=== PATIENT | male | born 2000 | race African-American/Black ===

== ENCOUNTER 2018-06-11 17:48 | Inpatient (IN) ==
[2018-06-11] MEDS ORDERED: Sod Chloride 0.9% Inj 1,000 ML IV.SIG ONE (18:28)
[2018-06-11 18:54] LABS: Baso % (Auto) 0.5 % (0.0-2.0); Eos # (Auto) 0.1 th/mm3 (0.0-0.4); Eos % (Auto) 1.4 % (0.0-4.0); Hematocrit 45.8 % (39.0-51.0); Hemoglobin 15.5 gm/dL (13.0-17.0); Lymph % (Auto) 30.2 % (9.0-44.0); Mean Corpuscular HGB Conc 33.9 % (32.0-36.0); Mean Corpuscular Hemoglobin 29.4 pg (27.0-34.0); Mean Corpuscular Volume 86.8 fL (80.0-100.0); Mean Platelet Volume 10.9 fL (7.0-11.0); Mono # (Auto) 0.3 th/mm3 (0.0-0.9); Mono % (Auto) 4.7 % (0.0-8.0); Neut # (Auto) 4.4 th/mm3 (1.8-7.7); Neut % (Auto) 63.2 % (16.0-70.0); Platelet Count 243 th/mm3 (150-450); Red Blood Count 5.28 mil/mm3 (4.50-5.90); Red Cell Distribution Width 12.6 % (11.6-17.2); White Blood Count 6.8 th/mm3 (4.0-11.0)
[2018-06-11 18:58] LABS: Chloride 92 meq/L (98-107); Potassium 4.5 meq/L (3.5-5.1); Sodium 128 meq/L (136-145)
[2018-06-11 19:01] LABS: Bilirubin,Urine Negative (Negative); Clarity,Urine Clear (Clear); Color,Urine Yellow (Yellw/Straw); Leukocyte Esterase,Urine Negative (Negative); Nitrite,Urine Negative (Negative); PH,Urine 5.5 (5.0-8.5); Urobilinogen,Urine 0.2 mg/dL (Less than 2)
[2018-06-11 19:02] LABS: Calcium 9.1 mg/dL (8.5-10.1)
[2018-06-11 19:03] LABS: Activated Partial Thrombo Time 26.2 sec (24.3-30.1); Albumin 3.9 g/dL (3.4-5.0); Anion Gap 18 meq/L (5-15); Blood Urea Nitrogen 15 mg/dL (7-18); Carbon Dioxide 17.8 meq/L (21.0-32.0); INR 1.1 Ratio; Lipase 146 U/L (73-393); Prothrombin Time 10.7 sec (9.8-11.6)
[2018-06-11 19:06] LABS: Aspartate Aminotransferase 19 U/L (15-39); Glomerular Filtration Rate 52 mL/min (>89)
[2018-06-11 19:07] LABS: Total Protein 7.7 g/dL (6.4-8.2)
[2018-06-11 19:08] LABS: Amorphous Sediment,Urine Rare /hpf; Bacteria,Urine Rare /hpf; Mucus,Urine Few /lpf (Occasional); RBC,Urine 0-3 /hpf (0-3); WBC,Urine 0-5 /hpf (0-5)
[2018-06-11 19:10] LABS: Alkaline Phosphatase 125 U/L (45-117)
[2018-06-11 19:14] LABS: Alanine Aminotransferase 43 U/L (9-52); Glucose,Random 610 mg/dL (74-106); Platelet Estimate Normal (Normal); Tear Drop Cells 1+
--- NOTE | 2018-06-11 19:27 | ED ---
HPI General Chief Complaint: Abdominal Pain Stated Complaint: left side pain Time Seen by Provider: 06/11/18 19:20 Source: patient Mode of arrival: ambulatory Limitations: no limitations History of Present Illness HPI narrative: 18-year-old male presents to the emergency department by private transportation for evaluation of left upper quadrant abdominal pain and left- sided chest pain since this morning. Patient reports approximate 2 weeks ago he bought an [id number] thyroid supplement at [facility] to help with his metabolism. Patient states that he started taking the medication approximately 5 days ago. Patient states that since taking the medication he has noticed increased urine output and he is lost approximately 18 pounds. Patient denies any known history of thyroid disease or diabetes. Patient states that his pain is intermittent has taken no medications for his discomfort. Patient denies any known history of hypertension dyslipidemia diabetes cardiac disease arrhythmia or thyroid dysfunction. Patient states that he has been diagnosed in the past with childhood asthma and a murmur when he was a young child reportedly. Patient has had no fever no chills has had no nausea no vomiting no sweats. Patient does not commonly referred neck jaw back shoulder or arm pain. Patient denies any family history of heart disease or hypertension or diabetes that he is aware of. Patient denies tobacco use alcohol use or substance use. Patient has noted increased urine output but does not report any increased hunger or thirst. Patient does not describe his discomfort as reproducible or pleuritic. MD complaint: Reports abdominal pain and other (chest pain) Onset (ago): day(s) (1) Related Data Home Medications Medication Instructions Recorded Confirmed No Known Home Medications 06/11/18 06/11/18 Allergies Allergy/AdvReac Type Severity Reaction Status Date / Time No Known Allergies Allergy Verified 06/11/18 18:09 Review of Systems ROS: all other systems reviewed are negative [facility] Medical History Medical History Patient denies medical problems (Acute) Surgical History Surgical History No history of previous surgery (Acute) Social History Social History Substance History: No History of Abuse Smoking Status: Never smoker How Often Do You Have a Drink Containing Alcohol: Never Recent Travel in [facility] within the Last 8 Weeks: No Recent Out of Country Travel within the Last 8 Weeks: No Immunization History Tetanus Immunization: Unsure Exam Narrative Exam Narrative: GENERAL: Well-nourished, well-developed patient. SKIN: Focused skin assessment warm/dry. HEAD: Normocephalic. EYES: No scleral icterus. No injection or drainage. NECK: Supple, trachea midline. No JVD or lymphadenopathy. CARDIOVASCULAR: Regular rate and rhythm without murmurs, gallops, or rubs. RESPIRATORY: Breath sounds equal bilaterally. No accessory muscle use. GASTROINTESTINAL: Abdomen soft, non-tender, nondistended. MUSCULOSKELETAL: No cyanosis, or edema. BACK: Nontender without obvious deformity. No CVA tenderness. Course Consultations Consultation #1: discussed with and accepted by Dr Hernandez for admission Initial Documented Vital Signs Temperature 98.6 F 06/11/18 18:03 Pulse Rate 111 H 06/11/18 18:03 Respiratory Rate 18 06/11/18 18:03 Blood Pressure 145/87 H 06/11/18 18:03 Pulse Oximetry 97 06/11/18 18:03 Last Documented Vital Signs Temperature 98.6 F 06/11/18 18:03 Pulse Rate 92 H 06/11/18 20:57 Respiratory Rate 16 06/11/18 20:57 Blood Pressure 148/86 H 06/11/18 20:57 Pulse Oximetry 98 06/11/18 20:57 Critical Care Time Critical Care Time: Yes Total Critical Care Time: 35 Attestation: Aggregate critical care time was 35 minutes. Time to perform other separately billable procedures was not included in the critical care time. My time did not include minutes spent treating any other patients simultaneously or on activities that did not directly contribute to the patient's treatment. The services I provided to this patient were to treat and/or prevent clinically significant deterioration that could result in: Electrolyte disturbance arrhythmia I provided critical care services requiring my management, as noted below: Chart data review, documentation time, medication orders and management, vital sign assessments/reviewing monitor data, ordering and reviewing lab tests, ordering and interpreting/reviewing x-rays and diagnostic studies, care of the patient and discussion of the patient with the admitting physicians. Medical Decision Making MDM Narrative Medical decision making narrative: 18 year old male with weight loss and polyuria --susupect new onset diabetes and possible dka serum glucose 610 patient given 2 liters NS bolus and weight based insulin 10 units IV with q1 hour glucose decreased bicarb with elevated anion gap and venous pH 7.24 --patient ordered dka protocol; b elevated patient and family informed of lab results diagnosis and plan for admission; call plced to [place] service MD Dr Hernandez --admit to [facility] ICU Medical Screen Exam Complete: Yes Emergency Medical Condition: Yes Differential Diagnosis Differential Diagnosis: dka, new onset diabetes, thyroid disease Medical Records Medical records reviewed: Yes I reviewed the patient's medical records. Lab Data Lab results reviewed: Yes I reviewed the patient's lab results. Result diagrams: 06/11/18 18:40 06/11/18 18:40 Lab Results 06/11/18 06/11/18 06/11/18 Range/Units 18:40 18:40 18:40 CBC w Diff Slide review pending WBC 6.8 (4.0-11.0) th/mm3 RBC 5.28 (4.50-5.90) mil/mm3 Hgb 15.5 (13.0-17.0) gm/dL Hct 45.8 (39.0-51.0) % MCV 86.8 (80.0-100.0) fL MCH 29.4 (27.0-34.0) pg MCHC 33.9 (32.0-36.0) % RDW 12.6 (11.6-17.2) % Plt Count 243 (150-450) th/mm3 MPV 10.9 (7.0-11.0) fL Neut % (Auto) 63.2 (16.0-70.0) % Lymph % (Auto) 30.2 (9.0-44.0) % [place] % (Auto) 4.7 (0.0-8.0) % Eos % (Auto) 1.4 (0.0-4.0) % Baso % (Auto) 0.5 (0.0-2.0) % Neut # (Auto) 4.4 (1.8-7.7) th/mm3 Lymph # (Auto) 2.0 (1.0-4.8) th/mm3 [place] # (Auto) 0.3 (0.0-0.9) th/mm3 Eos # (Auto) 0.1 (0.0-0.4) th/mm3 Baso # (Auto) 0.0 (0.0-0.2) th/mm3 WBC Differential . Diff Scan Auto diff confirmed Differential Comment . Platelet Estimate Normal (Normal) Platelet Morphology Enlarged H (Normal) Tear Drop Cells 1+ H (None) PT 10.7 (9.8-11.6) sec INR 1.1 Ratio APTT 26.2 (24.3-30.1) sec Puncture Site Patient Temperature VBG pH (7.360-7.400) VBG pCO2 (44-48) mmHG VBG pO2 (35-40) mmHG VBG HCO3 (22-26) mmol/L VBG O2 Saturation (70-76) % VBG O2 Content (9.0-17.0) Vol % VBG Base Excess (-2-2) mmol/L VBG Carboxyhemoglobin (0-4) % VBG Methemoglobin (0-2) % Hemoglobin (12.0-16.0) G/DL Inspired O2 % Critical Value Sodium 128 L (136-145) meq/L Potassium 4.5 (3.5-5.1) meq/L Chloride 92 L (98-107) meq/L Carbon Dioxide 17.8 L (21.0-32.0) meq/L Anion Gap 18 H (5-15) meq/L BUN 15 (7-18) mg/dL Creatinine 2.00 H (0.60-1.30) mg/dL Estimated GFR 52 L (>89) mL/min POC Glucose (68-110) mg/dl Random Glucose 610 H* (74-106) mg/dL Calcium 9.1 (8.5-10.1) mg/dL Magnesium 2.0 (1.5-2.5) mg/dL Total Bilirubin 0.7 (0.2-1.0) mg/dL AST 19 (15-39) U/L ALT 43 (9-52) U/L Alkaline Phosphatase 125 H (45-117) U/L Total Protein 7.7 (6.4-8.2) g/dL Albumin 3.9 (3.4-5.0) g/dL Lipase 146 (73-393) U/L Beta-Hydroxybutyric Acd 6.46 H (0.00-0.39) mmol/L TSH 2.100 (0.358-3.740) uIU/mL Urine Color (Yellw/Straw) Urine Clarity (Clear) Urine pH (5.0-8.5) Ur Specific [place] (1.002-1.035) Urine Protein (Neg-Trace) mg/dL Urine Glucose (UA) (Negative) mg/dL Urine Ketones (Negative) mg/dL Urine Occult Blood (Negative) Urine Nitrate (Negative) Urine Bilirubin (Negative) Urine Urobilinogen (Less than 2) mg/dL Ur Leukocyte Esterase (Negative) Urine RBC (0-3) /hpf Urine WBC (0-5) /hpf Amorphous Sediment (None) /hpf Urine Bacteria (None) /hpf Urine Mucus (Occasional) /lpf Micro UA Comment Ur Microscopic Review Urine Culture Comments 06/11/18 06/11/18 06/11/18 Range/Units 18:50 20:34 20:50 CBC w Diff WBC (4.0-11.0) th/mm3 RBC (4.50-5.90) mil/mm3 Hgb (13.0-17.0) gm/dL Hct (39.0-51.0) % MCV (80.0-100.0) fL MCH (27.0-34.0) pg MCHC (32.0-36.0) % RDW (11.6-17.2) % Plt Count (150-450) th/mm3 MPV (7.0-11.0) fL Neut % (Auto) (16.0-70.0) % Lymph % (Auto) (9.0-44.0) % [place] % (Auto) (0.0-8.0) % Eos % (Auto) (0.0-4.0) % Baso % (Auto) (0.0-2.0) % Neut # (Auto) (1.8-7.7) th/mm3 Lymph # (Auto) (1.0-4.8) th/mm3 [place] # (Auto) (0.0-0.9) th/mm3 Eos # (Auto) (0.0-0.4) th/mm3 Baso # (Auto) (0.0-0.2) th/mm3 WBC Differential Diff Scan Differential Comment Platelet Estimate (Normal) Platelet Morphology (Normal) Tear Drop Cells (None) PT (9.8-11.6) sec INR Ratio APTT (24.3-30.1) sec Puncture Site R ac Patient Temperature 98.6 VBG pH 7.24 L* (7.360-7.400) VBG pCO2 42 L (44-48) mmHG VBG pO2 36 (35-40) mmHG VBG HCO3 18 L (22-26) mmol/L VBG O2 Saturation 57 L (70-76) % VBG O2 Content 12.0 (9.0-17.0) Vol % VBG Base Excess -8.5 L (-2-2) mmol/L VBG Carboxyhemoglobin 0.9 (0-4) % VBG Methemoglobin 1.8 (0-2) % Hemoglobin 15.0 (12.0-16.0) G/DL Inspired O2 21 % Critical Value Yes Sodium (136-145) meq/L Potassium (3.5-5.1) meq/L Chloride (98-107) meq/L Carbon Dioxide (21.0-32.0) meq/L Anion Gap (5-15) meq/L BUN (7-18) mg/dL Creatinine (0.60-1.30) mg/dL Estimated GFR (>89) mL/min POC Glucose 353 H (68-110) mg/dl Random Glucose (74-106) mg/dL Calcium (8.5-10.1) mg/dL Magnesium (1.5-2.5) mg/dL Total Bilirubin (0.2-1.0) mg/dL AST (15-39) U/L ALT (9-52) U/L Alkaline Phosphatase (45-117) U/L Total Protein (6.4-8.2) g/dL Albumin (3.4-5.0) g/dL Lipase (73-393) U/L Beta-Hydroxybutyric Acd (0.00-0.39) mmol/L TSH (0.358-3.740) uIU/mL Urine Color Yellow (Yellw/Straw) Urine Clarity Clear (Clear) Urine pH 5.5 (5.0-8.5) Ur Specific [place] 1.020 (1.002-1.035) Urine Protein Negative (Neg-Trace) mg/dL Urine Glucose (UA) 1000 or greater H (Negative) mg/dL Urine Ketones 80 or greater H (Negative) mg/dL Urine Occult Blood Trace (Negative) Urine Nitrate Negative (Negative) Urine Bilirubin Negative (Negative) Urine Urobilinogen 0.2 (Less than 2) mg/dL Ur Leukocyte Esterase Negative (Negative) Urine RBC 0-3 (0-3) /hpf Urine WBC 0-5 (0-5) /hpf Amorphous Sediment Rare H (None) /hpf Urine Bacteria Rare H (None) /hpf Urine Mucus Few H (Occasional) /lpf Micro UA Comment Culture not ind Ur Microscopic Review Microscopic reviewed Urine Culture Comments Culture not ind 06/11/18 06/11/18 Range/Units 21:33 23:11 CBC w Diff WBC (4.0-11.0) th/mm3 RBC (4.50-5.90) mil/mm3 Hgb (13.0-17.0) gm/dL Hct (39.0-51.0) % MCV (80.0-100.0) fL MCH (27.0-34.0) pg MCHC (32.0-36.0) % RDW (11.6-17.2) % Plt Count (150-450) th/mm3 MPV (7.0-11.0) fL Neut % (Auto) (16.0-70.0) % Lymph % (Auto) (9.0-44.0) % [place] % (Auto) (0.0-8.0) % Eos % (Auto) (0.0-4.0) % Baso % (Auto) (0.0-2.0) % Neut # (Auto) (1.8-7.7) th/mm3 Lymph # (Auto) (1.0-4.8) th/mm3 [place] # (Auto) (0.0-0.9) th/mm3 Eos # (Auto) (0.0-0.4) th/mm3 Baso # (Auto) (0.0-0.2) th/mm3 WBC Differential Diff Scan Differential Comment Platelet Estimate (Normal) Platelet Morphology (Normal) Tear Drop Cells (None) PT (9.8-11.6) sec INR Ratio APTT (24.3-30.1) sec Puncture Site Patient Temperature VBG pH (7.360-7.400) VBG pCO2 (44-48) mmHG VBG pO2 (35-40) mmHG VBG HCO3 (22-26) mmol/L VBG O2 Saturation (70-76) % VBG O2 Content (9.0-17.0) Vol % VBG Base Excess (-2-2) mmol/L VBG Carboxyhemoglobin (0-4) % VBG Methemoglobin (0-2) % Hemoglobin (12.0-16.0) G/DL Inspired O2 % Critical Value Sodium (136-145) meq/L Potassium (3.5-5.1) meq/L Chloride (98-107) meq/L Carbon Dioxide (21.0-32.0) meq/L Anion Gap (5-15) meq/L BUN (7-18) mg/dL Creatinine (0.60-1.30) mg/dL Estimated GFR (>89) mL/min POC Glucose 339 H 286 H (68-110) mg/dl Random Glucose (74-106) mg/dL Calcium (8.5-10.1) mg/dL Magnesium (1.5-2.5) mg/dL Total Bilirubin (0.2-1.0) mg/dL AST (15-39) U/L ALT (9-52) U/L Alkaline Phosphatase (45-117) U/L Total Protein (6.4-8.2) g/dL Albumin (3.4-5.0) g/dL Lipase (73-393) U/L Beta-Hydroxybutyric Acd (0.00-0.39) mmol/L TSH (0.358-3.740) uIU/mL Urine Color (Yellw/Straw) Urine Clarity (Clear) Urine pH (5.0-8.5) Ur Specific [place] (1.002-1.035) Urine Protein (Neg-Trace) mg/dL Urine Glucose (UA) (Negative) mg/dL Urine Ketones (Negative) mg/dL Urine Occult Blood (Negative) Urine Nitrate (Negative) Urine Bilirubin (Negative) Urine Urobilinogen (Less than 2) mg/dL Ur Leukocyte Esterase (Negative) Urine RBC (0-3) /hpf Urine WBC (0-5) /hpf Amorphous Sediment (None) /hpf Urine Bacteria (None) /hpf Urine Mucus (Occasional) /lpf Micro UA Comment Ur Microscopic Review Urine Culture Comments Discharge Plan Discharge Disposition Patient Disposition: 30 Still Patient Discharge Condition Condition: Stable Discharge Details Diagnosis: DKA (diabetic ketoacidoses) Physicians Team ED Provider: Wilma Lancaster Primary Care Provider: UNKNOWN, Attending Provider: Sary Hernandez Status ED Status: Admitted Patient
[2018-06-11] MEDS ORDERED: Sod Chloride 0.9% Inj 1,000 ML IV.SIG SCH (19:30)
[2018-06-11 19:52] LABS: Beta Hydroxybutyric Acid 6.46 mmol/L (0.00-0.39)
[2018-06-11 21:02] LABS: VBG Base Excess -8.5 mmol/L (-2-2); VBG PCO2 42 mmHG (44-48); VBG PH 7.24 (7.360-7.400); VBG PO2 36 mmHG (35-40)
[2018-06-11] MEDS ORDERED: Insulin Regular (For Infusion) 100 UNIT in Sodium Chlor 0.9% Inj 99 ML IV.CONT PRN ×2 (21:52→22:00)
[2018-06-11] MEDS ORDERED: Sodium Phosphate Inj 15 MMOL in Sodium Chlor 0.9% Inj 100 ML IV.SIG PRN (22:01)
[2018-06-11] MEDS ORDERED: Potassium Chlor 20 mEq Premix 20 MEQ/100 ML PIGGYBACK IV.SIG PRN ×6 (22:01)
[2018-06-11] MEDS ORDERED: Potassium Chlor 40 mEq Premix 40 MEQ/100 ML PIGGYBACK IV.SIG PRN ×2 (22:01)
[2018-06-11] MEDS: Sod Chloride 0.9% Inj 1,000 ML IV.CONT SCH (23:25)
[2018-06-12] MEDS: Dextrose 5%/NaCl 0.9% Inj 1,000 ML IV.CONT SCH ×5 (02:25→17:26)
[2018-06-12 03:14] LABS: Calcium 7.9 mg/dL (8.5-10.1); Carbon Dioxide 18.1 meq/L (21.0-32.0); Potassium 3.7 meq/L (3.5-5.1)
[2018-06-12] MEDS ORDERED: Dextrose 50% in Water 50 ML Vial IV.PUSH PRN (03:31)
[2018-06-12] MEDS ORDERED: DC previous DKA orders (HMC 1917) OTHER ONE (03:31)
[2018-06-12] MEDS: Sod Chloride 0.9% Inj 1,000 ML IV.CONT SCH ×5 (03:42→17:26)
[2018-06-12] MEDS ORDERED: Chlorhexidine Gluconate 2% 1 Pack (2 Cloths) TOPICAL PRN (04:00)
[2018-06-12] MEDS ORDERED: Insulin Regular (For Infusion) 100 UNIT in Sodium Chlor 0.9% Inj 99 ML IV.CONT PRN (04:38)
[2018-06-12] MEDS ORDERED: Insulin NovoLOG Aspart Correctional Sugar Inj SQ SCH (05:15)
[2018-06-12] MEDS: Insulin NovoLOG Aspart Correctional Sugar Inj SQ SCH ×4 (08:12→21:29)
[2018-06-12 10:02] LABS: Potassium 4.3 meq/L (3.5-5.1)
[2018-06-12 10:07] LABS: Calcium 8.2 mg/dL (8.5-10.1)
[2018-06-12 10:08] LABS: Carbon Dioxide 20.3 meq/L (21.0-32.0)
--- NOTE | 2018-06-12 14:30 | P.HP ---
History of Present Illness Primary Care Physician: UNKNOWN Chief Complaint: Flank pain History of Present Illness: 18-year-old male with no history of any chronic medical illnesses who presented to hospital because of right flank pain. Patient states that a couple weeks ago he went to [facility] and picked up some thyroid supplement. He had been taking it for 2 weeks and since then he has been experiencing polydipsia, polyuria. Patient denies any weight loss or weight gain. Patient denies any polyphagia. Patient denies any family history of diabetes. Patient came to emergency department because of flank pain and found to have diabetic ketoacidosis requiring IV insulin. Patient indicates that since his sugar had been corrected he is no longer thirsty or urinating a lot. - Diagnosis (1) DKA (diabetic ketoacidoses) Inpatient Certification: I certify that the inpatient services were ordered in accordance with Medicare regulations governing the order. This includes certification that hospital inpatient services are reasonable and necessary and in the case of services not specified as inpatient-only under 42 CFR 419.22(n), that they are appropriately provided as inpatient services in accordance to with the 2-midnight benchmark under 43 CFR 412.3(e) Estimated Total Length of Stay (Days): 2 Plans for Post Hospital Care: Not yet determined Review of Systems All other systems reviewed negative except as stated in HPI Endocrine: Reports increased thirst, Reports increased urination PMFSH - History History Provided By: Patient - Medical History Medical History: Medical History (Last Reviewed 06/11/18 @ 23:26 by Wilma Lancaster MD) Patient denies medical problems - Surgical History Surgical History: Surgical History (Last Reviewed 06/11/18 @ 23:26 by Wilma Lancaster MD) No history of previous surgery - Family History Family History: Family History (Last Updated 06/12/18 @ 14:30 by ESME Brock) Other No pertinent family history - Tobacco History Second Hand Smoke Exposure: No Smoking Status: Never smoker - Alcohol History How Often Do You Have a Drink Containing Alcohol: Never - Substance Use History Substance History: No History of Abuse - Travel History Recent Travel in the [place] Within the Last 8 Weeks: No Recent Travel Out of the Country Within the Last 8 Weeks: No - Immunization History Tetanus Immunization: <5 Years Hx Influenza Vaccine This Season: No Medications and Allergies Active Medications: Active Medications Chlorhexidine Gluconate (Chlorhexidine 2% Cloth) 3 pack TOPICAL DAILY@0400 RAMYA Stop: 06/17/18 03:59 Chlorhexidine Gluconate (Chlorhexidine 2% Cloth) 3 pack TOPICAL DAILY@0400 PRN PRN Reason: Extra cloth needed Stop: 06/17/18 03:59 Dextrose (D50w Vial) 50 ml IV.PUSH UNSCH PRN PRN Reason: PER HYPOGLYCEMIA PROTOCOL Glucagon (Glucagon Inj) 1 mg OTHER PRN PRN PRN Reason: for Hypoglycemia Protocol Dextrose/Sodium Chloride (D5w/Normal Saline Inj) 1,000 mls @ 200 mls/hr IV.CONT .Q5H RAMYA Last Admin: 06/12/18 14:03 Dose: Not Given Sodium Chloride (Ns Inj) 1,000 mls @ 250 mls/hr IV.CONT .Q4H RAMYA Last Admin: 06/12/18 14:05 Dose: Not Given Insulin Human Regular 100 unit (/ Sodium Chloride) 100 mls @ 11 mls/hr IV.CONT TITRATE PRN; Protocol PRN Reason: See protocol Insulin Aspart (Novolog Insulin Correctional Sugar Inj) 0 unit SQ ACHS AND 3AM RAMYA; Protocol Last Admin: 06/12/18 11:56 Dose: 5 unit Sodium Chloride (Ns Flush) 2 ml IV.FLUSH PRN PRN PRN Reason: FLUSH AFTER USING IV ACCESS Allergies Allergy/AdvReac Type Severity Reaction Status Date / Time No Known Allergies Allergy Verified 06/11/18 18:09 Home Medications Medication Instructions Recorded Confirmed Type No Known Home Medications 06/11/18 06/11/18 History Exam Vital signs: Vital Signs 06/11/18 18:03 06/11/18 18:45 06/11/18 18:50 Temperature 98.6 F Pulse Rate 111 H 88 Respiratory Rate 18 14 Blood Pressure 145/87 H 151/99 H Pulse Oximetry 97 97 97 06/11/18 19:09 06/11/18 20:57 06/11/18 23:00 Temperature Pulse Rate 92 H 92 H 92 H Respiratory Rate 16 16 16 Blood Pressure 178/96 H 148/86 H 112/76 Pulse Oximetry 99 98 99 06/12/18 02:08 06/12/18 06:47 06/12/18 08:00 Temperature 99.4 F Pulse Rate 75 74 86 Respiratory Rate 16 16 16 Blood Pressure 140/73 137/79 137/77 Pulse Oximetry 98 06/12/18 09:00 06/12/18 12:00 06/12/18 12:55 Temperature 98.5 F Pulse Rate 86 88 88 Respiratory Rate 16 17 Blood Pressure 138/96 H 136/92 H Pulse Oximetry 98 97 Intake & Output 06/11/18 06/12/18 06/12/18 18:59 06:59 18:59 Intake Total 2703 / 2703 0 / 0 Balance 2703 / 2703 0 / 0 Weight 108.6 kg Intake: IV 2703 / 2703 0 / 0 D5W/Normal Saline Inj 1,000 ML 200 / 200 @ 200 mls/hr IV.CONT .Q5H RAMYA Rx#:[id number] NS Inj 1,000 ML @ 250 mls/hr IV 500 / 500 0 / 0 .CONT .Q4H RAMYA Rx#:[id number] NS Inj 1,000 ML @ Wide Open IV. 1000 / 1000 SIG BOLUS RAMYA Rx#:[id number] Narrative: GENERAL: Well-developed, well-nourished, in no acute distress. alert and orientated HEENT: Head is normocephalic without any lesions or masses noted. Facial features are symmetric. Eyes: Pupils equal round reactive to light. Extraocular muscles are intact. Conjunctivae were clear. Oropharyngeal: Pharynx without any erythema edema. Tongue is midline without deviation. Buccal mucosa is moist without any masses or lesions NECK: Supple without any masses. Trachea midline no deviation. No JVD, no bruits are appreciated CARDIAC: Regular rhythm, regular rate. S1/S2 are heard. No murmurs gallops or rubs. LUNGS: Clear to auscultation bilaterally. No wheeze, rhonchi or rales. No use of accessory muscles on inspiration or expiration. ABDOMEN: Soft, nontender. Nondistended. Bowel sounds heard in all 4 quadrants. No organomegaly or masses. Negative rebound, negative guarding EXTREMITIES: No edema, pulses are equal bilaterally. No cyanosis or clubbing NEUROLOGY: Mood and affect appear appropriate. Cranial nerves II through XII grossly intact. Muscle strength 5/5 in upper and lower extremities bilaterally. Deep tendon reflexes are 2+ in upper and lower extremities bilaterally. Results - Labs CBC & Chem 7: 06/11/18 18:40 06/12/18 09:40 Labs: Laboratory Results - last 24 hr 10/22/18 10/22/18 10/22/18 18:40 18:40 18:40 CBC w Diff Slide review pending WBC 6.8 RBC 5.28 Hgb 15.5 Hct 45.8 MCV 86.8 MCH 29.4 MCHC 33.9 RDW 12.6 Plt Count 243 MPV 10.9 Neut % (Auto) 63.2 Lymph % (Auto) 30.2 [place] % (Auto) 4.7 Eos % (Auto) 1.4 Baso % (Auto) 0.5 Neut # (Auto) 4.4 Lymph # (Auto) 2.0 [place] # (Auto) 0.3 Eos # (Auto) 0.1 Baso # (Auto) 0.0 WBC Differential . Diff Scan Auto diff confirmed Differential Comment . Platelet Estimate Normal Platelet Morphology Enlarged H Tear Drop Cells 1+ H PT 10.7 INR 1.1 APTT 26.2 Puncture Site Patient Temperature VBG pH VBG pCO2 VBG pO2 VBG HCO3 VBG O2 Saturation VBG O2 Content VBG Base Excess VBG Carboxyhemoglobin VBG Methemoglobin Hemoglobin Inspired O2 Critical Value Sodium 128 L Potassium 4.5 Chloride 92 L Carbon Dioxide 17.8 L Anion Gap 18 H BUN 15 Creatinine 2.00 H Estimated GFR 52 L POC Glucose Random Glucose 610 H* Calcium 9.1 Magnesium 2.0 Total Bilirubin 0.7 AST 19 ALT 43 Alkaline Phosphatase 125 H Total Protein 7.7 Albumin 3.9 Lipase 146 Beta-Hydroxybutyric Acd 6.46 H TSH 2.100 Urine Color Urine Clarity Urine pH Ur Specific [place] Urine Protein Urine Glucose (UA) Urine Ketones Urine Occult Blood Urine Nitrate Urine Bilirubin Urine Urobilinogen Ur Leukocyte Esterase Urine RBC Urine WBC Amorphous Sediment Urine Bacteria Urine Mucus Micro UA Comment Ur Microscopic Review Urine Culture Comments 06/11/18 06/11/18 06/11/18 18:50 20:34 20:50 CBC w Diff WBC RBC Hgb Hct MCV MCH MCHC RDW Plt Count MPV Neut % (Auto) Lymph % (Auto) [place] % (Auto) Eos % (Auto) Baso % (Auto) Neut # (Auto) Lymph # (Auto) [place] # (Auto) Eos # (Auto) Baso # (Auto) WBC Differential Diff Scan Differential Comment Platelet Estimate Platelet Morphology Tear Drop Cells PT INR APTT Puncture Site R ac Patient Temperature 98.6 VBG pH 7.24 L* VBG pCO2 42 L VBG pO2 36 VBG HCO3 18 L VBG O2 Saturation 57 L VBG O2 Content 12.0 VBG Base Excess -8.5 L VBG Carboxyhemoglobin 0.9 VBG Methemoglobin 1.8 Hemoglobin 15.0 Inspired O2 21 Critical Value Yes Sodium Potassium Chloride Carbon Dioxide Anion Gap BUN Creatinine Estimated GFR POC Glucose 353 H Random Glucose Calcium Magnesium Total Bilirubin AST ALT Alkaline Phosphatase Total Protein Albumin Lipase Beta-Hydroxybutyric Acd TSH Urine Color Yellow Urine Clarity Clear Urine pH 5.5 Ur Specific [place] 1.020 Urine Protein Negative Urine Glucose (UA) 1000 or greater H Urine Ketones 80 or greater H Urine Occult Blood Trace Urine Nitrate Negative Urine Bilirubin Negative Urine Urobilinogen 0.2 Ur Leukocyte Esterase Negative Urine RBC 0-3 Urine WBC 0-5 Amorphous Sediment Rare H Urine Bacteria Rare H Urine Mucus Few H Micro UA Comment Culture not ind Ur Microscopic Review Microscopic reviewed Urine Culture Comments Culture not ind 06/11/18 06/11/18 06/11/18 21:33 23:11 23:52 CBC w Diff WBC RBC Hgb Hct MCV MCH MCHC RDW Plt Count MPV Neut % (Auto) Lymph % (Auto) [place] % (Auto) Eos % (Auto) Baso % (Auto) Neut # (Auto) Lymph # (Auto) [place] # (Auto) Eos # (Auto) Baso # (Auto) WBC Differential Diff Scan Differential Comment Platelet Estimate Platelet Morphology Tear Drop Cells PT INR APTT Puncture Site Patient Temperature VBG pH VBG pCO2 VBG pO2 VBG HCO3 VBG O2 Saturation VBG O2 Content VBG Base Excess VBG Carboxyhemoglobin VBG Methemoglobin Hemoglobin Inspired O2 Critical Value Sodium Potassium Chloride Carbon Dioxide Anion Gap BUN Creatinine Estimated GFR POC Glucose 339 H 286 H 268 H Random Glucose Calcium Magnesium Total Bilirubin AST ALT Alkaline Phosphatase Total Protein Albumin Lipase Beta-Hydroxybutyric Acd TSH Urine Color Urine Clarity Urine pH Ur Specific [place] Urine Protein Urine Glucose (UA) Urine Ketones Urine Occult Blood Urine Nitrate Urine Bilirubin Urine Urobilinogen Ur Leukocyte Esterase Urine RBC Urine WBC Amorphous Sediment Urine Bacteria Urine Mucus Micro UA Comment Ur Microscopic Review Urine Culture Comments 06/12/18 06/12/18 06/12/18 01:06 02:12 02:45 CBC w Diff WBC RBC Hgb Hct MCV MCH MCHC RDW Plt Count MPV Neut % (Auto) Lymph % (Auto) [place] % (Auto) Eos % (Auto) Baso % (Auto) Neut # (Auto) Lymph # (Auto) [place] # (Auto) Eos # (Auto) Baso # (Auto) WBC Differential Diff Scan Differential Comment Platelet Estimate Platelet Morphology Tear Drop Cells PT INR APTT Puncture Site Patient Temperature VBG pH VBG pCO2 VBG pO2 VBG HCO3 VBG O2 Saturation VBG O2 Content VBG Base Excess VBG Carboxyhemoglobin VBG Methemoglobin Hemoglobin Inspired O2 Critical Value Sodium 139 D Potassium 3.7 D Chloride 108 H D Carbon Dioxide 18.1 L Anion Gap 13 BUN 10 Creatinine 1.30 Estimated GFR 85 L POC Glucose 225 H 137 H Random Glucose 137 H D Calcium 7.9 L D Magnesium Total Bilirubin AST ALT Alkaline Phosphatase Total Protein Albumin Lipase Beta-Hydroxybutyric Acd TSH Urine Color Urine Clarity Urine pH Ur Specific [place] Urine Protein Urine Glucose (UA) Urine Ketones Urine Occult Blood Urine Nitrate Urine Bilirubin Urine Urobilinogen Ur Leukocyte Esterase Urine RBC Urine WBC Amorphous Sediment Urine Bacteria Urine Mucus Micro UA Comment Ur Microscopic Review Urine Culture Comments 06/12/18 06/12/18 06/12/18 03:06 04:06 04:47 CBC w Diff WBC RBC Hgb Hct MCV MCH MCHC RDW Plt Count MPV Neut % (Auto) Lymph % (Auto) [place] % (Auto) Eos % (Auto) Baso % (Auto) Neut # (Auto) Lymph # (Auto) [place] # (Auto) Eos # (Auto) Baso # (Auto) WBC Differential Diff Scan Differential Comment Platelet Estimate Platelet Morphology Tear Drop Cells PT INR APTT Puncture Site Patient Temperature VBG pH VBG pCO2 VBG pO2 VBG HCO3 VBG O2 Saturation VBG O2 Content VBG Base Excess VBG Carboxyhemoglobin VBG Methemoglobin Hemoglobin Inspired O2 Critical Value Sodium Potassium Chloride Carbon Dioxide Anion Gap BUN Creatinine Estimated GFR POC Glucose 134 H 216 H 244 H Random Glucose Calcium Magnesium Total Bilirubin AST ALT Alkaline Phosphatase Total Protein Albumin Lipase Beta-Hydroxybutyric Acd TSH Urine Color Urine Clarity Urine pH Ur Specific [place] Urine Protein Urine Glucose (UA) Urine Ketones Urine Occult Blood Urine Nitrate Urine Bilirubin Urine Urobilinogen Ur Leukocyte Esterase Urine RBC Urine WBC Amorphous Sediment Urine Bacteria Urine Mucus Micro UA Comment Ur Microscopic Review Urine Culture Comments 06/12/18 06/12/18 06/12/18 08:04 09:40 11:51 CBC w Diff WBC RBC Hgb Hct MCV MCH MCHC RDW Plt Count MPV Neut % (Auto) Lymph % (Auto) [place] % (Auto) Eos % (Auto) Baso % (Auto) Neut # (Auto) Lymph # (Auto) [place] # (Auto) Eos # (Auto) Baso # (Auto) WBC Differential Diff Scan Differential Comment Platelet Estimate Platelet Morphology Tear Drop Cells PT INR APTT Puncture Site Patient Temperature VBG pH VBG pCO2 VBG pO2 VBG HCO3 VBG O2 Saturation VBG O2 Content VBG Base Excess VBG Carboxyhemoglobin VBG Methemoglobin Hemoglobin Inspired O2 Critical Value Sodium 137 Potassium 4.3 Chloride 103 Carbon Dioxide 20.3 L Anion Gap 14 BUN 9 Creatinine 1.50 H Estimated GFR 72 L POC Glucose 238 H 280 H Random Glucose 322 H D Calcium 8.2 L Magnesium Total Bilirubin AST ALT Alkaline Phosphatase Total Protein Albumin Lipase Beta-Hydroxybutyric Acd TSH Urine Color Urine Clarity Urine pH Ur Specific [place] Urine Protein Urine Glucose (UA) Urine Ketones Urine Occult Blood Urine Nitrate Urine Bilirubin Urine Urobilinogen Ur Leukocyte Esterase Urine RBC Urine WBC Amorphous Sediment Urine Bacteria Urine Mucus Micro UA Comment Ur Microscopic Review Urine Culture Comments Caprini VTE Risk Assessment Caprini VTE Risk Assessment: No/Low Risk (score <= 1) Caprini Risk Assessment Model: Point Value = 1 Point Value = 2 Point Value = 3 Point Value = 5 Age 41-60 Minor surgery BMI > 25 kg/m2 Swollen legs Varicose veins or History of unexplained or recurrent spontaneous Oral contraceptives or hormone replacement Sepsis (< 1 month) Serious lung disease, including pneumonia (< 1 month) Abnormal pulmonary function Acute myocardial infarction Congestive heart failure (< 1 month) History of inflammatory bowel disease Medical patient at bed rest Age 61-74 Arthroscopic surgery Major open surgery (> 45 min) Laparoscopic surgery (> 45 min) Malignancy Confined to bed (> 72 hours) Immobilizing plaster cast Central venous access Age >= 75 History of VTE Family history of VTE Factor V Leiden Prothrombin [id number] Lupus anticoagulant Anticardiolipin antibodies Elevated serum homocysteine Heparin-induced thrombocytopenia Other congenital or acquired thrombophilia Stroke (< 1 month) Elective arthroplasty Hip, pelvis, or leg fracture Acute spinal cord injury (< 1 month) Prophylaxis Regimen: Total Risk Factor Score Risk Level Prophylaxis Regimen 0-1 Low Early ambulation 2 Moderate Order ONE of the following: *Sequential Compression Device (SCD) *Heparin 5000 units SQ BID 3-4 Higher Order ONE of the following medications: *Heparin 5000 units SQ TID *Enoxaparin/Lovenox 40 mg SQ daily (WT < 150 kg, CrCl > 30 mL/min) *Enoxaparin/Lovenox 30 mg SQ daily (WT < 150 kg, CrCl > 10-29 mL/min) *Enoxaparin/Lovenox 30 mg SQ BID (WT < 150 kg, CrCl > 30 mL/min) AND/OR *Sequential Compression Device (SCD) 5 or more Highest Order ONE of the following medications: *Heparin 5000 units SQ TID (Preferred with Epidurals) *Enoxaparin/Lovenox 40 mg SQ daily (WT < 150 kg, CrCl > 30 mL/min) *Enoxaparin/Lovenox 30 mg SQ daily (WT < 150 kg, CrCl > 10-29 mL/min) *Enoxaparin/Lovenox 30 mg SQ BID (WT < 150 kg, CrCl > 30 mL/min) AND *Sequential Compression Device (SCD) Assessment and Plan - Assessment (1) DKA (diabetic ketoacidoses) Code(s): E13.10 - Other specified diabetes mellitus with ketoacidosis without coma Status: Acute - Plan Diabetic ketoacidosis in a patient with new onset diabetes -Patient was started on insulin IV, however that was discontinued early this morning -Anion gap has improved -Patient started on sliding scale insulin -Hemoglobin A1c is pending -Diabetic education is pending Azotemia -BUN/creatinine ratio 7.5 -Continue IV fluids -Continue monitor renal function DVT prevention -Low risk, early ambulation Discharge Planning: Discharge planning after hemoglobin A1c and diabetic education
[2018-06-12] MEDS: Chlorhexidine Gluconate 2% 1 Pack (2 Cloths) TOPICAL SCH (15:39)
[2018-06-12 15:53] LABS: Potassium 4.2 meq/L (3.5-5.1)
[2018-06-12 15:55] LABS: Calcium 8.6 mg/dL (8.5-10.1)
[2018-06-12 15:56] LABS: Carbon Dioxide 15.9 meq/L (21.0-32.0)
[2018-06-12 17:06] LABS: Hemoglobin A1c 12.6 % (4.3-6.0)
[2018-06-12 21:47] LABS: Potassium 4.2 meq/L (3.5-5.1)
[2018-06-12 21:49] LABS: Calcium 8.8 mg/dL (8.5-10.1)
[2018-06-13] MEDS: Sod Chloride 0.9% Inj 1,000 ML IV.CONT SCH ×5 (00:38→15:31)
[2018-06-13] MEDS: Dextrose 5%/NaCl 0.9% Inj 1,000 ML IV.CONT SCH ×4 (00:38→14:25)
[2018-06-13] MEDS: Insulin NovoLOG Aspart Correctional Sugar Inj SQ SCH ×3 (03:28→14:23)
[2018-06-13] MEDS: Chlorhexidine Gluconate 2% 1 Pack (2 Cloths) TOPICAL SCH (05:36)
[2018-06-13 06:53] LABS: Potassium 3.7 meq/L (3.5-5.1)
[2018-06-13 06:58] LABS: Calcium 8.7 mg/dL (8.5-10.1)
[2018-06-13 06:59] LABS: Carbon Dioxide 18.9 meq/L (21.0-32.0)
[2018-06-13 08:25] VITALS: RESP 16
[2018-06-13] MEDS ORDERED: Insulin Detemir Inj 1,000 UNIT/10 ML Vial SQ SCH (09:00)
--- NOTE | 2018-06-13 10:25 | P.PN ---
Subjective Interval history: 18-year-old male who is seen and examined today for follow-up on new onset diabetes who presented with diabetic ketoacidosis. Patient is doing well. Tolerating diet. Denies any polydipsia, polyuria, polyphagia. Vital signs are stable. Patient remains afebrile. Awaiting diabetic education Physical Exam Vital signs: Vital Signs 06/12/18 12:00 06/12/18 12:55 06/12/18 18:11 Temperature 98.5 F 98.3 F Pulse Rate 88 88 80 Respiratory Rate 16 17 18 Blood Pressure 138/96 H 136/92 H 142/94 H Pulse Oximetry 98 97 98 06/12/18 20:00 06/13/18 00:00 06/13/18 08:00 Temperature 98.3 F 97.2 F L 96.8 F L Pulse Rate 81 91 H 92 H Respiratory Rate 18 18 16 Blood Pressure 138/94 H 136/85 134/73 Pulse Oximetry 99 93 L 95 Intake & Output 06/12/18 06/13/18 06/13/18 18:59 06:59 18:59 Intake Total 0 / 0 300 / 300 Output Total 650 / 650 Balance 0 / 0 -350 / -350 Weight 118.5 kg Intake: IV 0 / 0 NS Inj 1,000 ML @ 250 mls/hr IV 0 / 0 .CONT .Q4H [facility] Rx#:[id number] Oral 300 / 300 Output: Urine 650 / 650 Other: Date of Last Bowel Movement 06/10/18 06/10/18 Narrative: GENERAL: Well-developed, well-nourished, in no acute distress. alert and orientated HEENT: Head is normocephalic without any lesions or masses noted. Facial features are symmetric. Eyes: Extraocular muscles are intact. Conjunctivae were clear. NECK: Supple without any masses. Trachea midline no deviation. No JVD, CARDIAC: Regular rhythm, regular rate. S1/S2 are heard. No murmurs gallops or rubs. LUNGS: Clear to auscultation bilaterally. No wheeze, rhonchi or rales. No use of accessory muscles on inspiration or expiration. ABDOMEN: Soft, nontender. Nondistended. Bowel sounds heard in all 4 quadrants. No organomegaly or masses. Negative rebound, negative guarding EXTREMITIES: No edema, pulses are equal bilaterally. No cyanosis or clubbing NEUROLOGY: Mood and affect appear appropriate. Cranial nerves II through XII grossly intact. Moving all extremities, speech is clear Results - Labs CBC & Chem 7: 06/11/18 18:40 06/13/18 05:12 Laboratory Results - last 24 hr 06/11/18 06/12/18 06/12/18 22:20 11:51 15:40 Sodium 134 L Potassium 4.2 Chloride 103 Carbon Dioxide 15.9 L Anion Gap 15 BUN 10 Creatinine 1.40 H Estimated GFR 78 L POC Glucose 280 H Random Glucose 329 H Hemoglobin A1c 12.6 H Calcium 8.6 06/12/18 06/12/18 06/12/18 16:36 20:44 21:30 Sodium 133 L Potassium 4.2 Chloride 100 Carbon Dioxide 19.0 L Anion Gap 14 BUN 11 Creatinine 1.50 H Estimated GFR 72 L POC Glucose 273 H 416 H Random Glucose 397 H Hemoglobin A1c Calcium 8.8 06/13/18 06/13/18 06/13/18 03:18 05:12 06:58 Sodium 137 Potassium 3.7 Chloride 104 Carbon Dioxide 18.9 L Anion Gap 14 BUN 9 Creatinine 1.30 Estimated GFR 85 L POC Glucose 278 H 232 H Random Glucose 245 H D Hemoglobin A1c Calcium 8.7 - Procedures none Assessment and Plan - Assessment (1) DKA (diabetic ketoacidoses) Code(s): E13.10 - Other specified diabetes mellitus with ketoacidosis without coma Status: Acute - Plan Diabetic ketoacidosis in a patient with new onset diabetes -Patient was was initially on insulin IV until anion gap improved. -Continue Accu-Cheks with sliding scale insulin, patient received 26 units of insulin in the last 24 hours -Started Levemir 5 units subcutaneous twice daily -Hemoglobin A1c is 12.6 -Diabetic education is pending, awaiting evaluation to determine outpatient management. Azotemia, improving -BUN/creatinine ratio 7.5 -Continue IV fluids -Continue monitor renal function Elevated blood pressure -We will start low-dose STARLA inhibitor for renal protection DVT prevention -Low risk, early ambulation Discharge Planning: Discharge home in stable condition Activity: Ad anamaria. Diet: Diabetic diet Medication per medication reconciliation Follow-up with primary medical doctor in 1 week
[2018-06-13] MEDS ORDERED: Lisinopril 5 MG Tablet PO SCH (10:30)
[2018-06-13 12:26] VITALS: BP 139/84; PULSE 105; TEMP 98.8; O2SAT 97
--- NOTE | 2018-06-14 01:48 | ECG ---
Date Performed: 06/11/2018 Time Performed: 18:36:33 PTAGE: 18 years EKG: Sinus rhythm ST ELEVATION, PROBABLY EARLY REPOLARIZATION BORDERLINE ECG NO PREVIOUS TRACING DOCTOR: Bull Anders Interpretating Date/Time 06/14/2018 01:47:10
== END 2018-06-13 16:22 | disposition home or self-care (01) ==
LOC: PHED 17:48 → PHEDA 22:02 → PHEDH 06-12 02:45 → PHEDA 06-12 14:35 → PHEDH 06-12 14:37 → PH3 06-12 15:00
PROVIDERS: ADMIT Internal Medicine; ATTEND Internal Medicine